=== PATIENT | female | born 1980 | race Two or more races ===

== ENCOUNTER 2020-01-17 20:16 | Emergency (ER) | payer BC, OTHER ==
[~2020-01-17] VITALS: Ht 175.3 cm; Wt 79.7 kg
[~2020-01-17 20:16] MED LIST: BUPR-86 PO; FLUD0.1T PO; LORA10TA75 PO
[2020-01-17] MEDS ORDERED: DIPHENHYDRAMINE 50 MG/ML, 1ML ONE (21:46)
[2020-01-17] MEDS ORDERED: PROCHLORPERAZINE 5 MG/ML, 2ML ONE (21:46)
[2020-01-17] MEDS ORDERED: ONDANSETRON 2MG/ML, 2ML ONE (21:48)
[2020-01-17 21:58] LABS: BASOPHILS # (AUTO) 0.06 x10^3/uL (0-0.1); BASOPHILS % (AUTO) 1 % (0-1); EOSINOPHILS # (AUTO) 0.02 x10^3/uL (0-0.4); EOSINOPHILS % (AUTO) 0 % (1-7); LYMPHOCYTES # (AUTO) 1.35 x10^3/uL (1-3.4); LYMPHOCYTES % (AUTO) 12 % (22-44); MD NO; MEAN CORPUSCULAR HEMOGLOBIN 29.1 pg (27.0-34.8); MEAN CORPUSCULAR HGB CONC 33.1 g/dL (32.4-35.8); MEAN CORPUSCULAR VOLUME 87.8 fL (80-100); MEAN PLATELET VOLUME 8.7 fL (7.4-10.4); MONOCYTES # (AUTO) 0.47 x10^3/uL (0.2-0.8); MONOCYTES % (AUTO) 4 % (2-9); NEUTROPHILS # (AUTO) 9.87 x10^3/uL (1.8-6.8); NEUTROPHILS % (AUTO) 84 % (42-75); PLATELET COUNT 400 x10^3/uL (130-400); RED CELL DISTRIBUTION WIDTH 13.8 % (9.6-15.2)
[2020-01-17] MEDS ORDERED: DIPHENHYDRAMINE 50 MG/ML, 1ML IVPush ONE (22:00)
[2020-01-17] MEDS ORDERED: ONDANSETRON 2MG/ML, 2ML IVPush ONE (22:00)
[2020-01-17] MEDS ORDERED: SODIUM CHLORIDE 0.9% 1,000ML IVBOLUS ONE (22:00)
[2020-01-17] MEDS ORDERED: PROCHLORPERAZINE 5 MG/ML, 2ML IVPush ONE (22:00)
[2020-01-17 22:11] LABS: ALBUMIN 3.5 g/dL (3.4-5.0); ANION GAP 8 mmol/L (5-15); CALCIUM 8.8 mg/dL (8.5-10.1); CHLORIDE 105 mmol/L (98-107); CREATININE 0.57 mg/dL (0.55-1.02)
--- NOTE | 2020-01-17 22:15 | NUR ---
MEDICATED PER MAR. VSS.
[2020-01-17 22:37] VITALS: BP 102/55
[2020-01-17] MEDS ORDERED: BUTA1CAP30 PO (22:44)
== END 2020-01-17 23:23 | disposition home or self-care (01) ==
LOC: ED 22:01
DX: O21.9 Vomiting of pregnancy, unspecified (principal); R51 Headache; R19.7 Diarrhea, unspecified
CPT/HCPCS: 36415; 80048; 82040; 84702; 85025; 96361; 96374; 96375; 99284; J0780; J1200; J2405; J7030

== ENCOUNTER 2020-07-09 16:19 | Outpatient (CLI) | payer SELFPAY ==
[~2020-07-09] VITALS: Ht 175.3 cm; Wt 100.0 kg
[~2020-07-09 16:19] MED LIST changes: +BUTA1CAP30 PO
[2020-07-09 16:56] VITALS: BP 108/71
[2020-07-09] MEDS ORDERED: PREN1TAB60 PO (17:12)
[2020-07-09] MEDS ORDERED: OMEP20TA62 PO (17:13)
[2020-07-09 18:06] LABS: MICROSCOPIC NOT IND
== END 2020-07-09 19:30 | disposition home or self-care (01) ==
LOC: LDOP 16:19
PROVIDERS: ATTEND Student in an Organized Health Care Education/Training Program
DX: O09.93 Supervision of high risk pregnancy, unspecified, third trimester (principal); O99.513 Diseases of the respiratory system complicating pregnancy, third trimester; R06.02 Shortness of breath; Z3A.33 33 weeks gestation of pregnancy
CPT/HCPCS: 59025; 81003

== ENCOUNTER 2020-08-03 17:09 | Outpatient (CLI) | payer SELFPAY ==
[~2020-08-03] VITALS: Ht 175.3 cm; Wt 100.0 kg
[~2020-08-03 17:09] MED LIST changes: +OMEP20TA62 PO; +PREN1TAB60 PO
[2020-08-03 17:48] VITALS: BP 129/83
[2020-08-03 18:47] LABS: BASOPHILS % (AUTO) 1 % (0-1); EOSINOPHILS % (AUTO) 0 % (1-7); LYMPHOCYTES % (AUTO) 21 % (22-44); MEAN CORPUSCULAR HGB CONC 33.8 g/dL (32.4-35.8); MEAN PLATELET VOLUME 10.3 fL (7.4-10.4); MONOCYTES % (AUTO) 9 % (2-9); NEUTROPHILS % (AUTO) 69 % (42-75); PLATELET COUNT 284 x10^3/uL (130-400); RED BLOOD COUNT 4.11 x10^6/uL (3.82-5.3); RED CELL DISTRIBUTION WIDTH 14.7 % (9.6-15.2)
[2020-08-03 18:56] LABS: MD NO
[2020-08-03 18:59] LABS: ALANINE AMINOTRANSFERASE 21 U/L (12-78); ALBUMIN 2.6 g/dL (3.4-5.0); ANION GAP 10 mmol/L (5-15); CHLORIDE 108 mmol/L (98-107); CREATININE 0.78 mg/dL (0.55-1.02)
[2020-08-03 19:01] LABS: ALKALINE PHOSPHATASE 158 U/L (45-117); BILIRUBIN,TOTAL 0.2 mg/dL (0.2-1.0); TOTAL PROTEIN 6.6 g/dL (6.4-8.2)
[2020-08-03 20:09] LABS: MICROSCOPIC INDICATED
== END 2020-08-03 20:29 | disposition home or self-care (01) ==
LOC: LDOP 17:09
PROVIDERS: ATTEND Student in an Organized Health Care Education/Training Program
DX: O09.93 Supervision of high risk pregnancy, unspecified, third trimester (principal); O16.3 Unspecified maternal hypertension, third trimester; Z3A.37 37 weeks gestation of pregnancy
CPT/HCPCS: 36415; 59025; 80053; 81001; 82570; 84156; 84550; 85025